=== PATIENT | female | born 1995 | race Caucasian/White ===

== ENCOUNTER 2017-01-16 15:39 | Emergency (ER) | payer MEDICAID ==
[~2017-01-16] VITALS: Wt 90.5 kg
[~2017-01-16 15:39] MED LIST: ACET500C5 PO; IBUP-1542 PO; LOPE2CAP PO; ONDA4TAB8 PO
[2017-01-16] MEDS ORDERED: AMO500 PO (17:52)
[2017-01-16] MEDS ORDERED: IBUP-1542 PO (17:52)
--- NOTE | 2017-01-16 17:53 | ERD ---
ER Documentation Chief Complaint Date/Time DATE: 01/16/17 TIME: 17:53 Chief Complaint LEFT EAR PAIN HPI This 21-year-old male presents with left ear pain and sore throat and fever for last 2 days. She denies vomiting, abdominal pain, cough or shortness breath. ROS All systems reviewed and are negative except as per history of present illness. Medications Home Meds Active Scripts Ibuprofen* (Motrin*) 600 Mg Tab, 600 MG PO Q6, #15 TAB Prov:MITZY GARSIA MD 01/16/17 Amoxicillin* (Amoxicillin*) 500 Mg Cap, 500 MG PO TID for 10 Days, CAP Prov:MITZY GARSIA MD 01/16/17 Loperamide Hcl* (Imodium*) 2 Mg Capsule, 2 MG PO .AFTER EA LOOSE BM Y for DIARRHEA, #10 TAB Prov:MATT SANDOVAL-C 06/03/16 Ondansetron Hcl* (Zofran*) 4 Mg Tablet, 4 MG PO Q6H for NAUSEA AND/OR VOMITING, #30 TAB Prov:MATT SANDOVAL-C 06/03/16 Ibuprofen* (Motrin*) 600 Mg Tab, 600 MG PO Q6, #20 TAB Prov:MATT SANDOVAL-C 16 Acetaminophen* (Tylophen*) 500 Mg Capsule, 1 CAP PO Q6H Y for PAIN AND OR ELEVATED TEMP, #20 CAP Prov:MATT SANDOVAL-C 06/03/16 PMhx/Soc History of Surgery: No Anesthesia Reaction: No Hx Neurological Disorder: No Hx Respiratory Disorders: No Hx Cardiac Disorders: No Hx Psychiatric Problems: No Hx Miscellaneous Medical Probl: No Hx Alcohol Use: No Hx Substance Use: No Hx Tobacco Use: No Physical Exam Vitals Vital Signs Date Time Temp Pulse Resp B/P Pulse Ox O2 Delivery O2 Flow Rate FiO2 01/16/17 15:46 99.6 96 20 112/71 99 Physical Exam Const: [] Alert, [id number] Head: Atraumatic Eyes: Normal Conjunctiva ENT: Normal External Ears, Nose and Mouth. TMs normal. There is tender anterior cervical lymphadenitis. There is erythema in the oropharynx without airway compromise and uvula is midline. Neck: Full range of motion..~ No meningismus. Resp: Clear to auscultation bilaterally Cardio: Regular rate and rhythm, no murmurs Abd: Soft, non tender, non distended. Normal bowel sounds Skin: No petechiae or rashes Back: No midline or flank tenderness Ext: No cyanosis, or edema Neur: Awake and alert Psych: Normal Mood and Affect Procedures/MDM Patient has signs and symptoms of pharyngitis and lymphadenitis. She will treated with amoxicillin and ibuprofen. There is no evidence of abscess or airway obstruction. The patient was stable with no new complaints during the ER course. Clinically, there is no current evidence to suggest meningitis, sepsis, acute abdomen, pneumonia, acute coronary syndrome, pulmonary embolism, or any other emergent condition appearing to require further evaluation or hospitalization. The patient should certainly return for any new or worsening symptoms per the aftercare instructions. They should otherwise follow-up with her primary care doctor for reevaluation this week. Departure Diagnosis: Primary Impression: Pharyngitis Pharyngitis/tonsillitis etiology: unspecified etiology Qualified Code: J02.9 - Pharyngitis, unspecified etiology Condition: Stable Patient Instructions: Fever Control (Adult), Pharyngitis, Strep (Presumed) Additional Instructions: Recheck for new or worsening symptoms or primary care doctor. MITZY GARSIA MD Jan 16, 2017 17:53
== END 2017-01-16 21:25 | disposition home or self-care (01) ==
LOC: FTE 15:39
DX: J02.9 Acute pharyngitis, unspecified (principal)
CPT/HCPCS: 99283